=== PATIENT | male | born 2000 | race Caucasian/White ===

== ENCOUNTER 2025-02-12 13:34 | Emergency (ER) | payer OTHER, SELFPAY ==
[2025-02-12 13:44] VITALS: BP 156/87; PULSE 92; RESP 17; TEMP 36.6; O2SAT 99; BMI 26.6
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
[2025-02-12 14:49] LABS: Hematocrit 44.8 % (37-53); Hemoglobin 15.20 g/dL (11.27-16.99); Mean Corpuscular HGB Conc 33.9 g/dL (30-55); Mean Corpuscular Hemoglobin 29.2 pg (27-33); Mean Corpuscular Volume 86.2 fl (82-101); Nucleated Red Blood Cells % 0 %; Platelet Count 207 10^3/cmm (157-399); Red Blood Count 5.20 10^6/uL (3.85-5.65); White Blood Count 8.28 10^3/uL (3.29-11.43)
[2025-02-12 14:53] LABS: Alanine Aminotransferase 49 U/L (0-41); Albumin Level 4.4 g/dL (3.5-5.2); Alkaline Phosphatase 93 U/L (40-130); Anion Gap 15.1 (5-19); Aspartate Amino Transferase 26 U/L (0-40); Blood Urea Nitrogen 15 mg/dL (6-20); Calcium 9.1 mg/dL (8.5-10.5); Carbon Dioxide 22 mmol/L (22-29); Chloride 107 mmol/L (98-107); Creatinine Clr Calc Pharmacy 185.7512; Globulin 3.0 g/dL (1.3-4.6); Glucose 92 mg/dL (65-115); Osmolality Calculated 290 mOsm/kg (285-295); Potassium 4.1 mmol/L (3.5-5.1); Sodium 140 mmol/L (136-145); Total Protein 7.4 g/dL (6.6-8.7)
[2025-02-12] MEDS: iohexol 350 mg/mL 500 mL Btl (per mL) IV (14:58)
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
[2025-02-12 16:13] LABS: Glucose Urine UA Negative (Normal); Nitrate Urine Negative (Negative)
[2025-02-12 16:16] LABS: Add Urine Microscopic? YES
[2025-02-12 16:31] LABS: Specific Gravity, Urine 1.038 (1.005-1.030)
== END 2025-02-12 16:58 | disposition home or self-care (01) ==
PROVIDERS: Emergency Provider Family Medicine; Family Provider General Practice; PCP General Practice
DX: S40.022A Contusion of left upper arm, initial encounter (principal); V89.2XXA Person injured in unspecified motor-vehicle accident, traffic, initial encounter
CPT/HCPCS: 36415; 71260; 73060; 74177; 80053; 81001; 85025; 99285